=== PATIENT | female | born 1990 | race Caucasian/White ===

== ENCOUNTER 2025-07-25 13:19 | Outpatient (CLI) | payer OTHER, SELFPAY ==
[2025-07-25 18:25] LABS: Chlamydia DNA Amplified* NOT DETECTED (No Detected); GC DNA Amplified* NOT DETECTED (No Detected)
[2025-07-28 07:47] LABS: HPV Source Cervix
[2025-07-31 08:52] LABS: Pap Test Digital Imaging Done
== END 2025-07-25 13:20 | disposition home or self-care (01) ==
PROVIDERS: Visit Provider Physician Assistant
DX: Z34.91 Encounter for supervision of normal pregnancy, unspecified, first trimester (principal); Z3A.09 9 weeks gestation of pregnancy
CPT/HCPCS: 76817; 83020; 83021; 85660; 86592; 86703; 86704; 86706; 86762; 86787; 86803; 86850; 86900; 86901; 87086; 87340; 87491; 87591; 87624; 87625; 88141; 88142; 88175

== ENCOUNTER 2025-10-03 14:23 | Outpatient (CLI) | payer OTHER, SELFPAY ==
--- NOTE | 2025-10-03 14:45 | CRLHL7_ITS ---
For Patients: As a result of the 21st Century Cures Act, medical imaging exams and procedure reports are released immediately into your electronic medical record. You may view this report before your referring provider. If you have questions, please contact your health care provider. AMAURI by LMP: 02/24/2026. GA: 19w, 3d. INDICATION: Anatomy scan. CERVIX: Visualized. Measurement: 3.6. POSITIONING: Vertex. AMNIOTIC FLUID: 5.7 cm SDP. PLACENTA: Technique: Transabdominal. PLACENTA POSITION: Anterior. PLACENTA TIP TO INTERNAL OS: 8.4 cm. PLACENTAL INSERTION: Central. UMBILICAL CORD: 3-vessel cord. BIOMETRY: BPD: 4.7 cm. 20w, 2d, 83.4 percent. HC: 17.8 cm. 20w, 2d, 80.2 percent. AC: 14.6 cm. 19w, 6d, 61.4 percent. FL: 3.3 cm. 20w, 2d, 72.3 percent. FL/AC ratio: 22.5 percent. HC/AC ratio: 1.2. EFW: 331.6 g. Weight: 0 lbs, 12 oz. age by this US: 20w, 1d. AMAURI by this US: 02/19/2026. Percentile by AMAURI: 82.4 percent. SURVEY: Observed Structures Cerebellum: Yes. 2.0 cm. Cisterna Magna: Yes. Nuchal Fold: Yes. Lateral Ventricle: Yes. CSP: Yes. Midline Falx: Yes. Choroid Plexus: Yes. Spine: Yes. Stomach: Yes. Abd Cord Insertion: Yes. Urinary Bladder: Yes. Kidneys: Yes. Diaphragm: Yes. Nose/lips: Yes. Orbital view: Yes. Profile: Yes. Upper Extremities: Yes. Lower Extremities: Yes. Hands: Yes. Feet: Yes. Four-Chamber Heart: Yes. LVOT: Yes. RVOT: Yes. 3VV: Yes. 3VTV: Yes. IMPRESSION: 1. Sonographic gestational age 20 weeks 1 day and sonographic due date 02/19/2026. Sonographic age is five days ahead of the clinical age. 2. Estimated weight 82nd percentile. Abdominal circumference 61st percentile. 3. Incomplete visualization of the spine. Short-term follow-up recommended. 4. Remainder of the anatomic survey is within normal limits. Aiden Delgadillo M.D. Diagnostic Radiologist [email or web address] bM/Dictated by: Aiden Delgadillo MD @ 10/03/2025 4:24:00 PM (Electronically Signed)
== END 2025-10-03 14:24 | disposition home or self-care (01) ==
LOC: US 14:24
PROVIDERS: Visit Provider Midwife
DX: Z34.92 Encounter for supervision of normal pregnancy, unspecified, second trimester (principal); Z3A.20 20 weeks gestation of pregnancy
CPT/HCPCS: 76805

== ENCOUNTER 2025-10-19 11:55 | Outpatient (CLI) | payer OTHER, SELFPAY ==
--- NOTE | 2025-10-19 12:15 | CRLHL7_ITS ---
For Patients: As a result of the Century Cures Act, medical imaging exams and procedure reports are released immediately into your electronic medical record. You may view this report before your referring provider. If you have questions, please contact your health care provider. OB ULTRASOUND FOLLOW-UP MISSING VIEWS TRANSABDOMINAL Clinical History: LMP: 05/20/2025. AMAURI by LMP: 02/24/2026. GA: 21 w, 5 d. Single. COMPARISON: Ultrasound 10/03/2025. INDICATION: Follow-up suboptimal views of spine on anatomy scan. TECHNIQUE: Real time mack scale imaging of the fetus was performed. Transabdominal imaging performed. CERVIX: Not visualized. POSITIONING: Breech, transverse. AMNIOTIC FLUID: 4.5 cm SDP (N: greater than 2 x 1 cm) PLACENTA: Technique: Transabdominal. DOPPLER: heart rate: 147 bpm. IMPRESSION: Normal spine. Aiden Delgadillo M.D. Diagnostic Radiologist [email or web address] SP/Dictated by: Aiden Delgadillo MD @ 10/19/2025 4:14:00 PM (Electronically Signed)
== END 2025-10-19 11:56 | disposition home or self-care (01) ==
LOC: US 11:56
PROVIDERS: Visit Provider Advanced Practice Midwife
DX: O36.72X0 Maternal care for viable fetus in abdominal pregnancy, second trimester, not applicable or unspecified (principal); Z3A.21 21 weeks gestation of pregnancy
CPT/HCPCS: 76816